=== PATIENT | male | born 1950 | race Caucasian/White ===

== ENCOUNTER → 2018-07-28 | Day surgery (SDC) | payer OTHER ==
[~2018-07-28] MED LIST: ATOR20TA58 PO; CITA20TA9 PO; DOCU-109 PO; ELBA1TAB PO; HYDROmorphone 2 MG/ML VIAL IV PRN; IV RINGERS,LACTATED 1000ML 1,000 ML IV SCH; LIDOCAINE 1% PF 2 ML VIAL. ID PRN; LIDOCAINE 2% PF 5 ML VIAL. ONE; METF500T16 PO; MORPHINE SULFATE 2 MG/ML VIAL. IV PRN; NAPR-514 PO; OLAN5TAB3 PO; ONDANSETRON PF 4 MG/2 ML VIAL. IV PRN; PANT20TA2 PO; PROCHLORPERAZINE 10 MG/2 ML VIAL. IV PRN; PROPOFOL 20 ML IV ONE; fentaNYL PF VIAL 100 MCG/2 ML VIAL IV PRN
[2018-07-28 13:34] VITALS: BP 116/72
--- NOTE | 2018-07-29 06:40 | CONS ---
DATE OF CONSULTATION: 07/28/2018 REFERRING PHYSICIAN: Erica Stover. HISTORY OF PRESENT ILLNESS: This is a 68-year-old male with past medical history significant for hyperlipidemia, diabetes, gastroesophageal reflux disease, hepatitis C on Zepatier treatment, seen for a screening endoscopy. He has risk factors for hep C with intravenous drug use and tattoos, but no blood transfusions. No extrahepatic manifestations of cirrhosis are noted at this time. He has not undergone previous upper endoscopy. There is no bleeding. He has no additional complaints. PAST MEDICAL HISTORY: Hyperlipidemia, diabetes, GERD, hep C. ALLERGIES: None. MEDICATIONS: Include atorvastatin, citalopram, Colace, Zepatier, metformin, Naprosyn, Zyprexa and pantoprazole. SOCIAL HISTORY: He is presently incarcerated. This is a former drinker and smoker. FAMILY HISTORY: Otherwise, noncontributory. PAST SURGICAL HISTORY: Noncontributory. REVIEW OF SYSTEMS: Per records. PHYSICAL EXAMINATION: GENERAL: Reveals a well-nourished, well-developed male. VITAL SIGNS: Temperature 97.8, pulse 56, respirations 20. HEENT: Normocephalic and atraumatic. Pupils and extraocular movements are not tested. Sclerae anicteric. NECK: Supple. LUNGS: Clear. CARDIOVASCULAR: Reveals an S1, S2 without S3, S4 or appreciable murmur. ABDOMEN: Soft abdomen, normal bowel sounds without appreciable hepatosplenomegaly. EXTREMITIES: Reveals no cyanosis, clubbing or edema. IMPRESSION: 1. Hepatitis C on Zepatier therapy. Upper endoscopy is recommended to assess for varices. Risks and benefits of procedure including risk of hemorrhage and perforation have been discussed. The patient is willing to proceed at this time. EDILBERTO MCGUIRE MD DR: EARLENE/darryl JOB#: [id number] / [id number] Erica Manning
== END | disposition home or self-care (01) ==
LOC: ENDOS 11:24 → EEVIPCON 13:00
PROVIDERS: ATTEND Internal Medicine Gastroenterology
DX: K31.89 Other diseases of stomach and duodenum (principal); E78.5 Hyperlipidemia, unspecified; E11.9 Type 2 diabetes mellitus without complications; K21.9 Gastro-esophageal reflux disease without esophagitis; Z86.19 Personal history of other infectious and parasitic diseases; Z79.899 Other long term (current) drug therapy; Z87.891 Personal history of nicotine dependence; Z72.89 Other problems related to lifestyle; Z79.84 Long term (current) use of oral hypoglycemic drugs
CPT/HCPCS: 43235; J2001; J2704